=== PATIENT | female | born 1930 | race Caucasian/White ===

== ENCOUNTER → 2021-02-03 | Outpatient (CLI) | payer MEDICARE, BC ==
[~2021-02-03] MED LIST: ASPIRIN 81M81 MG/TA2 PO; CARDIZEM CD 24240 MG PO; GLUCOPHAGE500 MG/TAB PO; HYZAAR 50-12.1 UDTAB PO; VIT C; VIT D; ZOCOR 10MG10 MG PO; [UNRECOGNIZED DRUG - REMARK]
[2021-02-03 14:27] LABS: BASO % 0.8 % (0.0-2.0); EOS # 0.1 (0.0-0.7); EOS % 1.2 % (0-4.0); GRAN # 3.2 (1.4-6.5); GRAN % 63.5 % (42.2-75.2); HEMATOCRIT 38.4 % (37.0-47.0); HEMOGLOBIN 12.3 g/dl (12.5-16.0); LYMPH % 20.2 % (20.0-51.0); MEAN CELL VOLUME 85 fl (80.0-100.0); MEAN CORPUSCULAR HEMOGLOBIN 27 pg (27.0-31.0); MEAN CORPUSCULAR HGB CONC 32 g/dl (33.0-37.0); MEAN PLATELET VOLUME 9.6 fl (7.4-10.4); MONO # 0.7 (0.1-0.6); MONO % 13.5 % (1.7-9.3); PLATELET COUNT 379 K/mm3 (130-400); RED BLOOD COUNT 4.54 M/mm3 (4.10-5.30); REDCELL DISTRIBUTION WIDTH-CV 14.7 % (11.5-14.5)
[2021-02-03 14:50] LABS: CALCIUM 9.2 mg/dL (8.4-10.2); CREATININE, serum 0.78 (0.52-1.25); POTASSIUM 3.8 mmol/L (3.4-5.0); URIC ACID 5.6 mg/dL (2.5-6.2)
[2021-02-03 14:55] LABS: ERYTHROCYTE SEDIMENTATION RATE 14 mm/hr (0-30)
== END ==
LOC: ZCOL.LAB 13:16
PROVIDERS: Internal Medicine
DX: E11.59 Type 2 diabetes mellitus with other circulatory complications (principal); N18.30 Chronic kidney disease, stage 3 unspecified; M10.9 Gout, unspecified